=== PATIENT | female | born 1975 | race Caucasian/White ===

== ENCOUNTER 2025-01-17 10:40 | Emergency (ER) | payer OTHER, SELFPAY ==
[2025-01-17 11:20] VITALS: BP 115/89
--- NOTE | 2025-01-17 12:56 | ED.GENMED ---
History of Present Illness
General
Chief Complaint: Crisis Evaluation
Source: patient and family
Exam Limitations: none
Time Seen by Provider: 01/17/25 12:25
Nursing documentation reviewed up to this point in time: agreed with
History of Present Illness
History of Present Illness:
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
drinks a pint of vodka a day has been in rehab 3 times previously denies any other substances has had seizures previously due to alcohol withdrawal
Past History
Past History
ED Past Medical History: Psychiatric
ED Past Surgical History: Orthopedic
Social History
Tobacco: Non-smoker
Alcohol: Chronic alcoholic
Drug: None
Personal: Single
Living: alone
Employment: Employed
Review of Systems
Review of Systems
All Other Systems: Not applicable
Psychiatric: Reports depression and anxiety; Denies suicidal
Phy Exam
Physical Exam
Physical Exam:
Physical Exam
General: Cooperative intoxicated disheveled female
Neck: No jaundice
Heart: s1/s2 regular rate and rhythm, no murmur. equal radial pulses.
Lungs: no acute respiratory distress. clear bilaterally
Neuro: alert and oriented. no focal neurological deficits
Skin: no rash
Psychiatric: Flat affect cooperative
Extremities: no edema.
Course
Orders/Labs/Results
Orders:
Orders
01/17/25 11:14
1:1 Observation - Suicide/ Violent Behavior As Directed
01/17/25 12:09
Crisis Consult Urgent
Reason for Consult: SI
01/17/25 12:56
Urine Drug Abuse Screen Urgent
Date Specimen was Collected: 01/17/25
Time Specimen was Collected: 12:57
Test Result ONCE
01/17/25 13:03
Consult Psychiatry [PSYCHIATRY CONSULT] Routine
Consulting Provider: Johnathan Franklin
Was physician already notified: Yes
01/17/25 13:04
Acetaminophen Urgent
Alcohol Urgent
Complete Blood Count/With Diff Urgent
Comprehensive Metabolic Panel Urgent
HCG, Serum Qualitative Screen Urgent
Salicylate Urgent
01/17/25 13:22
CT Cervical Spine W/o Iv Contr Urgent
Comment:
Reason For Exam: fall druk
CT Head W/o Iv Contrast Urgent
Comment:
Reason For Exam: fall drunk
01/17/25 14:25
Diazepam [Valium] 5 mg PO NOW STA
01/17/25 16:34
Gabapentin [Neurontin] 600 mg PO NOW STA
01/17/25 16:57
NSS 1000mL Bolus WIDE OPEN 0.9% Sodium Chloride 1000 ml [Nss] 1,000 ml IV BOLUS
Ondansetron Injectable [Zofran] 4 mg IV NOW STA
diazePAM [Valium Injection] 10 mg IV NOW STA
01/17/25 20:00
Gabapentin [Neurontin] 600 mg PO Q4
Abnormal Lab Results
01/17/25
13:04
Absolute Neuts (auto) 7.8 H 10^3/uL
(1.4-6.5)
Carbon Dioxide 20 L mmol/L
(22-30)
Calcium 8.3 L mg/dl
(8.4-10.2)
Salicylates < 1.0 L mg/dl
(2.0-20.0)
Acetaminophen < 10 L ug/ml
(10-30)
01/17/25 13:04
01/17/25 13:04
Vital Signs
Initial and Last Documented VS:
Initial Vital Signs
Temp Pulse Resp BP Pulse Ox
98.1 F 109 20 115/89 95
01/17/25 11:20 01/17/25 11:20 01/17/25 11:20 01/17/25 11:20 01/17/25 11:20
Last Documented Vital Signs
Temp Pulse Resp BP Pulse Ox
98.1 F 110 20 115/89 95
01/17/25 11:20 01/17/25 14:37 01/17/25 11:20 01/17/25 11:20 01/17/25 12:57
MDM/Problems Addressed
Differential Diagnosis Includes:
Anxiety depression substance abuse
MDM/Problems Addressed:
Mental health substance abuse
Chronic conditions affecting care: Psychiatric illness
Acute Exacerbation and/or Progression of Chronic Illness: Psychiatric illness
*Pulse Oximetry
SaO2: 95
Oxygen Mode of Delivery: Room air
Patient hypoxic: no
*Critical Care Note
Total Time (30-74mins, 75-104mins- exclusive of procedures): Not Applicable
Update Note
Update Note:
1:20 PM nursing reports patient maybe fell and struck her head yesterday she is drunk will check CT of the head cervical spine previously reviewed with crisis they recommended blood work psychiatric consultation apparently the plan will be a dual
diagnosis
3:30 PM labs include BAL noted, patient can get agitated, due to her history of seizures, will start withdrawal protocol p.o. benzos
5p-pt vomiting
will place int, iv meds
ED Attending Note
-
Portions of this chart may have been created with voice recognition software.� Occasional wrong word or��sound alike� substitutions may have occurred due to the inherent limitations of voice recognition software.
Discharge Plan
Departure
Patient Disposition: Psych Facility
Date of Disposition: 01/17/25
Time of Disposition: 16:15
Patient with high blood pressure during this ER visit?: No
Condition: Good
Discharge Problem:
Alcoholism, Depression
Prescriptions:
No Action
vortioxetine [Trintellix] 20 MG tablet
20 mg PO DAILY
Referrals:
UNKNOWN,NO INTERVIEW [Family Provider]
Interventions
Interventions:
*Risk Screen - Suicide Last Done: 01/17/25 11:06
*General Assessment Last Done: 01/17/25 11:06
*Neglect/Abuse Screening Last Done: 01/17/25 11:06
*ED- Fall Risk Assessment Last Done: 01/17/25 11:20
*ED COVID-19 Vaccine History Last Done: 01/17/25 11:20
ED-Psychological Assessment Last Done: 01/17/25 11:21
Discharge Date and Time
Print Language: ARMENIAN
[2025-01-17 13:14] LABS: Hematocrit 41.0 % (37.0-47.0); Hemoglobin 14.2 g/dL (12.0-16.0); Mean Corp Hgb Conc. 34.6 g/dL (33.0-37.0); Mean Corpuscular Volume 88.2 fL (81.0-99.0); Nucleated Red Blood Cells % 0 %; Platelet Count 327 10^3/uL (130-400); Red Cell Dist. Width 13.3 % (11.5-14.5)
[2025-01-17 13:32] LABS: HCG, Serum Qualitative Screen Negative
[2025-01-17 13:41] LABS: ALT (SGPT) 18 U/L (0-35); AST (SGOT) 30 U/L (14-36); Acetaminophen < 10 ug/ml (10-30); Albumin 4.8 g/dl (3.5-5.0); Alkaline Phosphatase 79 U/L (38-126); Blood Urea Nitrogen 15 mg/dl (7-17); Calcium 8.3 mg/dl (8.4-10.2); Carbon Dioxide 20 mmol/L (22-30); Chloride 104 mmol/L (98-107); Glucose 95 mg/dl (70-99); Potassium 4.3 mmol/L (3.5-5.1); Salicylate < 1.0 mg/dl (2.0-20.0); Sodium 140 mmol/L (135-145); Total Protein 7.8 g/dl (6.3-8.2); eGFR > 60.00
[2025-01-17] MEDS: VALIUM 5 MG PO (14:34)
[2025-01-17] MEDS: NEURONTIN 600 MG PO ×2 (16:39→20:34)
[2025-01-17] MEDS: ZOFRAN 4 MG IV (17:12)
[2025-01-17] MEDS: NSS 1000 IV (17:12)
[2025-01-17] MEDS: VALIUM INJECTION 10 MG IV ×3 (17:12→20:35)
[2025-01-17 17:17] VITALS: BP 103/66
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
== END 2025-01-17 21:00 ==
LOC: EMR 10:40
PROVIDERS: CONSULT PHYSICIAN Psychiatry & Neurology Psychiatry; EMERGENCY PHYSICIAN Emergency Medicine
DX: F10.20 Alcohol dependence, uncomplicated (principal); F32.A Depression, unspecified; Y90.9 Presence of alcohol in blood, level not specified; W19.XXXA Unspecified fall, initial encounter
CPT/HCPCS: 96374; 96375; 96361; 96376; 99285; 70450; 72125; 80053; 80143; 80179; 80306; 80307; 82077; 84703; 85025